=== PATIENT | male | born 1965 | race Caucasian/White ===

== ENCOUNTER → 2017-08-23 | Day surgery (SDC) | payer MEDICARE, MEDICAID ==
[2017-08-23 08:08] LABS: HEMOGLOBIN 15.9 g/dL (14.1-18.0); LYMPH % 29.4 % (10-50)
[2017-08-23 08:20] LABS: BUN 12 mg/dL (7-18)
[2017-08-23 08:21] LABS: GFR (ESTIMATED) 70 ML/MIN (>60)
--- NOTE | 2017-08-23 09:26 | RADIOLOGY REPORT PS360 ---
CARDIAC CATHETERIZATION DATE OF CATHETERIZATION:08/23/2017 8:42 AM PROCEDURES: 1. Left heart catheterization 2. Left ventriculogram 3. Selective coronary angiogram 4. Selective engagement of the left internal mammary artery 5. Selective engagement of the saphenous vein graft to the circumflex artery 6. Selective engagement of the saphenous vein graft to the right coronary artery INDICATION FOR TEST: 1. Coronary artery disease 2. History of coronary bypass surgery 3. Class IV angina Informed consent was obtained prior to the procedure. COMPLICATIONS: None ESTIMATED BLOOD LOSS: Less than 10 ml. TECHNIQUE: One percent lidocaine was used to anesthetize the right groin. The right femoral artery was accessed via the Seldinger technique. A 4-Cam[place]onian sheath was placed in the right femoral artery. The JL-4 and JR-4 catheter was also used to perform left heart catheterization left ventriculogram and selective coronary angiogram. The JR4 catheter was used to selectively cannulate the 2 saphenous vein grafts and the left internal mammary artery. At the end of the procedure the patient was transferred to the post-op holding area in stable condition for arterial sheath removal. ANGIOGRAPHIC RESULTS: 1. The left main artery normal 2. The left anterior descending artery proximally has 30% stenoses and is then occluded immediately after medium sized first diagonal artery. The first diagonal artery has a proximal concentric 60% stenosis this is a 1.5 to 2 mm first diagonal artery. 3. The ramus intermedius is a 1.5 to 2 mm vessel and has mild luminal irregularities 4. The circumflex artery is a dominant vessel and gives rise to a small first obtuse marginal artery. The terminal obtuse marginal arteries long vessel and has a long concentric 70-80% stenosis at a 2 mm vessel. Distal to this area is a small stent which is patent. The terminal obtuse marginal arteries a long vessel 5 small in caliber. 5. The right coronary artery is probably codominant and proximally subtotally occluded 6. The NEWSOME ventriculogram reveals mild left ventricular dilatation with reduced ejection fraction estimated at 40-45% 7. The left ventricular end-diastolic pressure 15 mmHg 8. The left internal mammary artery is a widely patent graft to the mid LAD. The remaining LAD is free of significant disease 9. The saphenous vein graft the circumflex artery is ostially occluded 10. The saphenous vein graft to the right coronary artery is a widely patent graft and supplies a long narrow caliber posterior descending artery IMPRESSION: 1. Coronary artery disease as described above 2. 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 Disease in a small diagonal artery and small caliber long terminal obtuse marginal artery 4. Mildly reduced ejection fraction 5. Normal to mildly elevated LVEDP PLAN: 1. Medical management 2. Risk factor modification 3. Maximize antianginal's
[2017-08-23 12:51] VITALS: BP 117/83
== END ==
LOC: CATHLAB 07:26
PROVIDERS: Internal Medicine
PROC: B2131ZZ Fluoroscopy of Multiple Coronary Artery Bypass Grafts using Low Osmolar Contrast (ICD-10-PCS; 2017-08-23)
PROC: B2111ZZ Fluoroscopy of Multiple Coronary Arteries using Low Osmolar Contrast (ICD-10-PCS; 2017-08-23)
PROC: B2181ZZ Fluoroscopy of Left Internal Mammary Bypass Graft using Low Osmolar Contrast (ICD-10-PCS; 2017-08-23)
PROC: B2151ZZ Fluoroscopy of Left Heart using Low Osmolar Contrast (ICD-10-PCS; 2017-08-23)
PROC: 4A023N7 Measurement of Cardiac Sampling and Pressure, Left Heart, Percutaneous Approach (ICD-10-PCS; principal; 2017-08-23 09:30)
DX: I25.119 Atherosclerotic heart disease of native coronary artery with unspecified angina pectoris (principal); I25.729 Atherosclerosis of autologous artery coronary artery bypass graft(s) with unspecified angina pectoris; I25.719 Atherosclerosis of autologous vein coronary artery bypass graft(s) with unspecified angina pectoris; Z95.1 Presence of aortocoronary bypass graft
CPT/HCPCS: C1725; C1769; C1894; J1644; Q9967